=== PATIENT | female | born 1955 | race Two or more races ===

== ENCOUNTER 2017-01-24 07:13 | Day surgery (SDC) | payer OTHER ==
[~2017-01-24 07:13] MED LIST: CEFAZOLIN SODIUM 2 GRAM PREMIX 100 ML IV ONE; IV START KIT ONE; SODIUM CHLORIDE 0.9% 1,000 ML ONE
[2017-01-24] MEDS ORDERED: SODIUM CHLORIDE 0.9% FLUSH 10 ML ONE (07:31)
[2017-01-24] MEDS ORDERED: IV START KIT ONE (07:31)
[2017-01-24] MEDS ORDERED: CEFAZOLIN SODIUM 2 GRAM PREMIX 100 ML IV PRN (07:40)
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
[2017-01-24] MEDS ORDERED: FENTANYL 100 MCG/2 ML VIAL ONE (09:14)
[2017-01-24] MEDS ORDERED: MIDAZOLAM HCL 1 MG/ML 2ML VIAL ONE (09:14)
[2017-01-24] MEDS ORDERED: BUPIVACAINE 0.5% W/EPI SDV 30 ML VIAL ONE (09:46)
[2017-01-24] MEDS ORDERED: FAMOTIDINE 10 MG/ML 2ML VIAL ONE (09:47)
[2017-01-24] MEDS ORDERED: CITRIC ACID/SODIUM CITRATE 15 ML UDCUP PO ONE (09:47)
[2017-01-24] MEDS ORDERED: LIDOCAINE 0.5% (PRES FREE) 50 ML VIAL ONE (09:52)
[2017-01-24] MEDS ORDERED: PROPOFOL 20 ML IV ONE (10:35)
--- NOTE | 2017-01-24 10:43 | PCMBPN ---
Brief Post Op Note: Date of Procedure: 01/24/17 Start Time: 1025 Preoperative Diagnosis: 1. right carpal tunnel syndrome Postoperative Diagnosis: 1. Same Procedure: right open carpal tunnel release Surgeon: Wyatt Perdomo MD Assist: none Anesthesia: Francesca Horn Findings: as above Condition: stable to PACU Complications: none IV Fluids: 500 mLs of LR Urine Output: 0 mLs Estimated Blood Loss: 1 mLs Tourniquet Time: 30 min at 250 mm Hg ([place] block) Specimens: none Implants: none Drains: none Wyatt Perdomo MD
[2017-01-24] MEDS ORDERED: HYDROMORPHONE HCL 1 MG/ML SYRINGE IV PRN (11:11)
[2017-01-24] MEDS ORDERED: KETOROLAC TROMETHAMINE 30 MG/ML 1 ML VIAL IV PRN (11:11)
[2017-01-24] MEDS ORDERED: ONDANSETRON 4 MG/2ML 2 ML VIAL IV PRN (11:11)
[2017-01-24] MEDS ORDERED: OXYCODONE/ACETAMINOPHEN 5/325 MG TABLET PO PRN (11:11)
[2017-01-24] MEDS ORDERED: LACTATED RINGERS 1,000 ML IV SCH (11:11)
--- NOTE | 2017-01-25 09:17 | OP ---
Martha MCCOY : 1955 [id number] DATE OF SERVICE: January 24, 2017 PREOPERATIVE DIAGNOSIS: Right carpal tunnel syndrome. POSTOPERATIVE DIAGNOSIS: Right carpal tunnel syndrome. PROCEDURE PERFORMED: RIGHT CARPAL TUNNEL RELEASE. SURGEON: Wyatt Perdomo M.D. PRINTING FILM STRIPPER: None. ANESTHESIA: Francesca Horn C.R.N.A. with a [place] block SPECIMENS: No material was sent to the laboratory. ESTIMATED BLOOD LOSS: 1mL FLUIDS REPLACED: 500 mL of crystalloid. TOURNIQUET TIME: 30 minutes at 250 mmHg. IMPLANTS: None. DRAINS: None. INDICATIONS: This is a 61-year-old right hand dominant patient with history, physical exam and neurodiagnostic findings of right carpal tunnel syndrome, which has failed to be relieved by nonoperative measures. Risks, benefits and alternatives of an open carpal tunnel release were discussed with the patient and they elected to proceed with surgery. Informed consent was obtained and documented in the chart and the patient was placed on the schedule the first available convenience. DESCRIPTION OF PROCEDURE: The patient was identified in the pre-operative holding area where they were marked with an indelible marker by the operating surgeon. The patient was taken to the operating room where they were placed in the supine position on the operating room table. A [place] block anesthetic was administered by the anesthesia provider. The patient was prepped and draped in the usual sterile fashion for surgery and received perioperative antibiotics prior to the inflation of the tourniquet. A final operative time out was performed and confirmed by all members of the operative team and a longitudinal incision was made on the patient's hand just 6 mm ulnar to the thenar flexion crease. Dissection was carried down identifying transverse fibers of the transverse carpal ligament. This was sharply divided at its proximal extent and the median nerve was visualized. A [place] elevator was passed into the carpal tunnel to protect the nerve while the remainder of the transverse carpal ligament was sharply divided. This was carried distally until we encountered the perivascular fat of the vascular arches. The tenotomy scissors were passed both superficial and deep to the distal volar forearm fascia proximally and no transligamentous branches of the nerve were identified. Under direct visualization a push cut technique was used to divide the proximal portion of the transverse carpal ligament and the distal volar forearm fascia. At this point we felt that we had achieved an adequate release of the patient's nerves so the wound was copiously irrigated with sterile saline and closed with horizontal mattress sutures of #4-0 Nylon. A sterile dressing of Xeroform, fluffs, web roll and an ISABLE bandage was applied. The tourniquet was deflated, the drapes were removed. The patient was transferred to a stretcher and taken postoperatively to the same day surgery unit in stable condition. There were no observed intraoperative complications during this procedure. Job [id number] Cc: [facility]
== END 2017-01-24 13:20 | disposition home or self-care (01) ==
LOC: SDC 07:13
PROVIDERS: ATTEND Orthopaedic Surgery
PROC: 01N50ZZ Release Median Nerve, Open Approach (ICD-10-PCS; principal; 2017-01-24)
DX: G56.01 Carpal tunnel syndrome, right upper limb (principal); M65.311 Trigger thumb, right thumb; M65.321 Trigger finger, right index finger; M65.351 Trigger finger, right little finger; E11.9 Type 2 diabetes mellitus without complications; Z79.899 Other long term (current) drug therapy; Z79.84 Long term (current) use of oral hypoglycemic drugs; Z87.891 Personal history of nicotine dependence; Z88.5 Allergy status to narcotic agent; Z88.8 Allergy status to other drugs, medicaments and biological substances
CPT/HCPCS: 64721; J3010; J2250; J2001; J7030; J0690